=== PATIENT | male | born 1965 | race Caucasian/White ===

== ENCOUNTER 2025-02-18 07:50 | Outpatient (CLI) | payer MEDICARE, MEDICAID ==
--- NOTE | 2025-02-18 09:47 | RADIOLOGY REPORT ---
Procedure: CT CT CHEST Reason for study/Clinical History: DYSPNEA,LONG COVID Comparison Study: None TECHNIQUE: Multidetector CT of the chest was performed from the lung apices to the upper abdomen with out the use of intravenous contract. Axial, coronal and sagittal multiplanar reformats were performed . Radiation Dose Information: CT Dose: CTDI volume is 8.7 mGy. Dose-length product is 373.7 mGy*cm The dose indicators for CT are the volume Computed Tomography (CT) Dose Index (CTDIvol) and the Dose Length Product (DLP), and are measured in units of mGy and mGy-cm, respectively. These indicators are not patient dose, but values generated from the CT scanner acquisition factors. The report includes radiation exposure data for exposures received during this examination. FINDINGS: Lower neck: Unremarkable. Lungs: Multifocal airspace disease. Tree-in-bud nodularity is present in the right upper lobe. More focal consolidation is present in the periphery of the right middle lobe and posteromedial left lung base. Heart/Vascular Structures: Ectasia of the ascending thoracic aorta measures 4.6 cm. Lymph Nodes: No adenopathy Pleura: No pleural effusion or significant pneumothorax. Musculoskeletal: No acute osseous abnormality. Soft tissues: Normal. Upper abdomen: Limited portions of the upper abdomen are unremarkable. IMPRESSION: Multifocal airspace disease, as above.
== END 2025-02-18 23:59 | disposition home or self-care (01) ==
LOC: RAD 07:50
PROVIDERS: ATTEND Family Medicine
DX: J44.9 Chronic obstructive pulmonary disease, unspecified (principal); R06.2 Wheezing; U09.9 Post COVID-19 condition, unspecified; I77.810 Thoracic aortic ectasia
CPT/HCPCS: 71250

== ENCOUNTER 2025-03-05 07:39 | Outpatient (CLI) | payer MEDICARE, MEDICAID ==
--- NOTE | 2025-03-05 10:46 | RADIOLOGY REPORT ---
CTA Chest with intravenous contrast INDICATION: HEMOPTYSIS, HYPOXIA COMPARISON: None TECHNIQUE: Multidetector spiral CTA of the chest was performed of the chest with intravenous contrast . PULMONARY ANGIOGRAPHY PROTOCOL was utilized using a bolus-tracking technique centered on the main p ulmonary artery. Axial, coronal and sagittal multiplanar and MIP reformats were performed. CONTRAST: Type of contrast: Omni 350 Contrast injected: 100 ml Radiation dose : Chest: CTDI volume is 31 mGy. Dose-length product is 543 mGy*cm The dose indicators for CT are the volume computed Tomography (CT) dose Index (CTDIvol) and the dose Length product (DLP), and are measured in units of mGy and mGy-cm, respectively. These indicators are not patient dose, but values generated from the CT scanner acquisition factors. The report includes radiation exposure data for exposures received during this examination. Findings: Pulmonary artery: No pulmonary embolism Lower neck: Normal thyroid. Lungs: Irregular nodular consolidation in the right middle lobe and left lower lobe. Heart/Vascular Structures: Normal heart size. No pericardial effusion. Lymph Nodes: No adenopathy Pleura: No pleural effusion or significant pneumothorax. Musculoskeletal: No acute osseous abnormality. Soft tissues: Normal. Upper abdomen: Right renal cyst. IMPRESSION: 1. No pulmonary embolism. 2. Irregular nodular consolidation in the right middle lobe and left lower lobe may be slightly impro izabella compared to prior. Findings could be infectious / inflammatory. Neoplastic etiologies are not ex cluded. Recommend clinical correlation and continued follow-up. HS:Y
== END 2025-03-05 23:59 | disposition home or self-care (01) ==
LOC: 64 CT 07:39
PROVIDERS: ATTEND Family Medicine
DX: J18.1 Lobar pneumonia, unspecified organism (principal); R04.2 Hemoptysis; R09.02 Hypoxemia; R06.02 Shortness of breath; N28.1 Cyst of kidney, acquired
CPT/HCPCS: 71275; Q9967